=== PATIENT | male | born 1975 | race African-American/Black ===

== ENCOUNTER 2023-12-07 07:24 | Day surgery (SDC) | payer OTHER ==
[2023-11-30 15:11] VITALS: BMI 36.6
[2023-12-07 09:58] VITALS: RESP 20; TEMP 97.8
[2023-12-07 10:15] VITALS: BP 102/74; PULSE 69
== END 2023-12-07 09:50 | disposition home or self-care (01) ==
LOC: FASU-ENDO 07:24
PROVIDERS: ATTEND Internal Medicine Gastroenterology
PROC: 0DBL8ZX Excision of Transverse Colon, Via Natural or Artificial Opening Endoscopic, Diagnostic (ICD-10-PCS; 2023-12-07)
PROC: 0DBN8ZX Excision of Sigmoid Colon, Via Natural or Artificial Opening Endoscopic, Diagnostic (ICD-10-PCS; principal; 2023-12-07 08:56)
DX: Z12.11 Encounter for screening for malignant neoplasm of colon (principal); D12.3 Benign neoplasm of transverse colon; D12.5 Benign neoplasm of sigmoid colon
CPT/HCPCS: 88305-TC